=== PATIENT | female | born 1950 | race Two or more races ===

== ENCOUNTER 2018-09-06 13:57 | Emergency (ER) | payer MEDICARE, MEDICAID ==
[~2018-09-06] VITALS: Ht 160 cm; Wt 70.3 kg
[~2018-09-06 13:57] MED LIST: ASPI81CH43 PO; CIP500T PO; ENAL2.5T PO; MET500T PO; METF-370 PO; PROM25TA5 PO; SIMV10TA84 PO; TRAM50TA2 PO
[2018-09-06 15:18] LABS: Basophils # (auto) 0 uL; Basophils % (auto) 0.5 % (0.0-2.0); Eosinophils # (auto) 0.1 uL; Eosinophils % (auto) 1.5 % (0.0-7.0); Hematocrit 41.9 % (36.0-46.0); Hemoglobin 14.2 g/dL (12.2-16.2); Lymphocytes # (auto) 1.6 uL; Lymphocytes % (auto) 16.7 % (10.0-50.0); Mean Corpuscular Hemoglobin 31.4 pg (28.0-32.0); Mean Corpuscular Hgb Conc. 33.9 g/dL (32.0-36.0); Mean Corpuscular Volume 92.6 fL (80.0-100.0); Monocytes # (auto) 0.5 uL; Neutrophils # (auto) 7.4 uL; Neutrophils % (auto) 76.3 % (37.0-80.0); Platelet Count (auto) 281 10^3/uL (140-450); Red Blood Cells 4.53 10^6/uL (4.0-5.20); Red Cell Distribution Width 13.4 % (11.8-14.3); White Blood Cell 9.7 10^3/uL (4.4-10.8)
[2018-09-06 15:30] LABS: Albumin 4.3 g/dL (3.4-5.0); Anion Gap 12 (5-15); Blood Urea Nitrogen 16 mg/dL (7-18); Calcium 8.4 mg/dL (8.5-10.1); Carbon Dioxide 21 mmol/L (21-32); Chloride 103 mmol/L (98-107); Glucose 195 mg/dL (74-106); Potassium 3.3 mmol/L (3.5-5.1); Sodium 136 mmol/L (136-145)
[2018-09-06 15:36] LABS: Alanine Aminotransferase 23 U/L (13-56); Alkaline Phosphatase 48 U/L (45-117); Aspartate Aminotransferase 26 U/L (15-37); BUN/Creatinine Ratio 18.6; Bilirubin, Total 0.4 mg/dL (0.2-1.0); GFR African American 84 mL/min; GFR Non-African American 70 mL/min; Total Protein 8.2 g/dL (6.4-8.2)
[2018-09-06] MEDS ORDERED: POTASSIUM EFFERVESENT TAB 25 MEQ PO ONE (17:00)
[2018-09-06 17:44] VITALS: BP 132/81
== END 2018-09-06 19:01 | disposition home or self-care (01) ==
LOC: ER 13:57 → EDBD 13:57 → ER 19:01
DX: S09.11XA Strain of muscle and tendon of head, initial encounter (principal); R55 Syncope and collapse; R42 Dizziness and giddiness; R11.2 Nausea with vomiting, unspecified; E11.9 Type 2 diabetes mellitus without complications; E78.5 Hyperlipidemia, unspecified; I10 Essential (primary) hypertension; Z90.710 Acquired absence of both cervix and uterus; Z79.899 Other long term (current) drug therapy; W18.09XA Striking against other object with subsequent fall, initial encounter; Y93.89 Activity, other specified; Y92.89 Other specified places as the place of occurrence of the external cause; Y99.8 Other external cause status
CPT/HCPCS: 36415; 70450; 71046; 72125; 80053; 83735; 84484; 85025; 94761